=== PATIENT | male | born 1960 | race Hispanic/Latino ===

== ENCOUNTER 2022-11-28 20:15 | Inpatient (IN) | payer BC ==
--- OUTSIDE RECORDS SUMMARY | 2022-11-28 21:12 | XMS REPORT | Continuity of Care Document ---
:1960 Author Organization [facility] t Address [address] [place] [address] [address] [place] [address] Care Team Providers Name Role Phone ANIBAL BOB Primary Care Physician Unavailable Gregorio Ramos Attending Clinician Unavailable DR ANIBAL BOB Attending Clinician Unavailable [phone] Attending Clinician Unavailable Moreno Haley Attending Clinician DR ANIBAL BOB Admitting Clinician Unavailable Mroeno Haley Admitting Clinician Payers Payer Name Policy Type Policy Number Effective Date Expiration Date S our BCBS/BLUE [id number] ADVANTAGE-HMO - CLINIC BCBS/BLUE [id number] ADVANTAGE-HMO - CLINIC BCBS/BLUE [id number] ADVANTAGE-HMO - CLINIC BCBS/BLUE [id number] ADVANTAGE-HMO - CLINIC BCBS/BLUE [id number] [facility] Problems Condition Condition Condition Status Onset Resolution Last Treating Co mments Source Name Details Category Date Date Treatment Clinician Date STEMI STEMI Diagnosis Active 2018-09-18 Mem oria Active 05-08 08:30:00 l 05/08/2018 00:00: Enmanuel roberto [address] Problem 2018-05-12 Memor ia elevation elevation 23:56:47 l (STEMI) (STEMI) Den myocardial myocardial infarction infarction of of unspecifie unspecifie d site d site 05/12/[address] [facility] [address] ST Diagnosis Active 2018-09-18 Mem oria ELEVATION ELEVATION 08:30:00 l (STEMI) (STEMI) [place] MYOCARDIAL MYOCARDIAL INFARCTI INFARCTI Active [facility] ENCOUNTER ENCOUNTER Diagnosis Active 2018-09-10 Donna FOR FOR 15:25:00 l IMMUNIZATI IMMUNIZATI He ann ON ON Active [facility] Allergies, Adverse Reactions, Alerts Allergy Allergy Status Severity Reaction(s) Onset Inactive Treating Comm ents Source Name Type Date Date Clinician No Known MA Active UNKNOWN [facility] ib[facility] ibuprofe Active [facility] [place] Social History Smoking Status Start Date Stop Date Source Social History [facility] Medications Ordered Filled Start Stop Current Ordering Indication Dosage Frequency Signature Comments Components Source Medication Medication Date Date Medication? Clinician (SIG) Name Name rosuvastati Yes 10 mg = 1 M emoria n 10 mg 2-15 tab, PO, l oral tablet 21:38: Bedtime, # [place] 00 30 tab, 2 Refill(s) metoprolol Yes 50 mg = 1 Me moria 50 mg oral 2-15 tab, PO, l tablet, 21:38: Daily, # Enmanuel n extended 00 30 tab, 2 release Refill(s) lisinopril Yes 5 mg = 1 Mem oria 5 mg oral 2-15 tab, PO, l tablet 21:38: Daily, # [place] 00 30 tab, 2 Refill(s) Aspirin 81 Yes 81 mg = 1 Me moria MG Enteric 2-15 tab, PO, l Coated 21:38: Daily, # Den Tablet 00 30 tab, 2 Refill(s) ticagrelor Yes 90 mg = 1 Me moria 90 mg oral 2-15 tab, PO, l tablet 21:38: Q12H, # 60 Angelica nn 00 tab, 2 Refill(s) rosuvastati No Notes: Michael vasile n 2-15 (Same As: l 03:00: Crestor) Lisinopril No Notes: Memor ia 2-14 (Same as: l 16:00: Prinivil, Den 00 Zestril) metoprolol No Notes: Memor ia extended 2-14 (Same as: l release 16:00: Toprol XL) Herm vivian May split tab, but do not crush. Aspirin 81 No Notes: Do Me moria MG Enteric 2-14 not crush l Coated 15:00: or chew. Den Tablet 00 (Same As: Ecotrin) Lipitor No Notes: Memoria 2-14 (Same As: l 03:00: Lipitor) [place] Saline No Notes: Memoria Flush 0.9% 2-14 Same as: l 03:00: BD Posiflush Sterile Ticagrelor No Notes: Memor ia 2-14 (Same as: l 03:00: Brilinta) atorvastati No Notes: Michael vasile n 2-14 (Same as: l 03:00: Lipitor) Sodium No 250 mL, Memoria Chloride 2-13 Route: l 0.9% IV 23:19: IVPB, Start date: 05/08/18 17:19:00 [employer], Duration: 30 day, Stop date: 06/07/18 18:18:00 CDT, PRN Line Flush Magnesium No Notes: Memori a Oxide 2-13 (Same as: l 23:12: Mag-Ox Den 00 400) Magnesium oxide 292bp=317h g elemental magnesium Dose=____m g magnesium oxide (___mg elemental magnesium) Calcium No Notes: Memoria Gluconate 2-13 WASTE: F/P l 23:12: - Sink; E [place] - [facility] Magnesium No Notes: Memori a Sulfate 2-13 WASTE: F/P l 23:12: - Sink; E Den - [facility] Trash [facility] Calcium No Notes: Memoria Carbonate 2-13 (Same As: l 500 MG 23:12: Tums) Den able 00 Calcium Tablet Carbonate 500 mg = 200 mg elemental calcium Dose = mg calcium carbonate ( mg elemental calcium) sodium No Notes: Memoria phosphate 2-13 Infuse l 23:12: over 4 Den 00 hour. Do not infuse phosphorou s concurrent ly in the same line as TPN or IVF that contains calcium. For double lumen central lines, phosphorou s may be infused in a separate lumen from TPN. Saline No Notes: Memoria Flush 0.9% 2-13 Same as: l 23:12: BD Den 00 Posiflush Sterile Albuterol No Notes: Memori a 0.833 MG/ML - (Same as: l / 23:12: Duoneb) [place] Ipratropium 00 [place] 0.167 MG/ML Inhalant Solution Nystatin No Notes: Memoria 100 UNT/MG - (Same l Topical 23:12: as:Mycosta Herm vivian Powder 00 tin, Nilstat) For external use only. Ondansetron No Notes: Michael vasile -13 (Same as: l 19:09: Zofran) Den 00 MEDICATION WASTE Product Size: 4 mg Product Wasted: ___ mg Acetaminoph No Notes: Do M emoria en - not exceed l 19:09: 4 gm/day. Den 00 (Same as: Tylenol) Acetaminoph No Notes: Michael vasile en 325 MG / - (Same as: l Hydrocodone 19:09: [place] Angelica nn Bitartrate 00 325/5) Do 5 MG Oral not exceed Tablet 4gm/day of acetaminop hen. Sodium No 750 mL, Memoria Chloride 05-08 Rate: 75 l 0.9% IV 750 19:09: ml/hr, Herm vivian mL 00 Infuse over: 10 hr, Route: IV, Dosing Weight 89.8 kg, Total Volume: 750, Start date: 05/08/18 13:09:00 [employer], Duration: 10 hr, Stop date: 05/08/18 23:08:00 [employer]ER, 2.1, m2 Vital Signs Vital Name Observation Time Observation Value Comments Source Systolic (mm Hg) 2018-05-10 21:13:00 Michael rial Den Diastolic (mm Hg) 2018-05-10 21:13:00 Mem orial [place] Heart Rate 2018-05-10 21:13:00 [facility] [place] Temperature Oral (F) 2018-05-10 21:13:00 98.1 F [facility] [place] Respitory Rate 2018-05-10 21:13:00 Memori al Den Temperature Oral (F) 2018-05-10 17:19:00 97.8 F [facility] [place] Heart Rate 2018-05-10 17:19:00 [facility] [place] Respitory Rate 2018-05-10 17:19:00 Memori al Den Systolic (mm Hg) 2018-05-10 17:19:00 Michael rial Den Diastolic (mm Hg) 2018-05-10 17:19:00 Mem orial [place] Systolic (mm Hg) 2018-05-10 13:45:00 Michael rial [place] Diastolic (mm Hg) 2018-05-10 13:45:00 Mem orial Den Heart Rate 2018-05-10 13:45:00 [facility] [place] Temperature Oral (F) 2018-05-10 13:45:00 97.9 F [facility] [place] Respitory Rate 2018-05-10 13:45:00 Memori al Den Height 2018-05-08 19:46:00 167.64 cm [facility] Den Weight 2018-05-08 19:01:00 [facility] BMI Calculated 2018-05-08 19:01:00 Memori al [place] Height 2018-05-08 19:01:00 172.72 cm [facility] Den Weight 2018-05-08 19:00:00 [facility] Den Procedures This patient has no known procedures. Encounters Start End Encounter Admission Attending Care Care Encounter Source Date/Time Date/Time Type Type Clinicians Facility Department ID 2022-11-09 Outpatient EJ Ramos [facility] [id number] Common 15:43:01 Gregorio [id number] [facility] 2022-11-07 Outpatient OkosEJ hoffmann [facility] [id number] Common 09:15:01 Gregorio [id number] [facility] 2022-11-03 Outpatient EJ Ramos [facility] [id number] Common 09:30:01 Gregorio [id number] [facility] 2021-06-27 Outpatient ELCAMPO E[facility] [id number] El 16:20:44 [id number] [facility] 2021-06-24 Outpatient ELCAMPO ELCAMPO [id number] El 08:30:40 [id number] [facility] 2018-05-08 Inpatient [id number] 11:20:00 2021-06-24 2021-06-[address] [id number] 08:32:00 09:14:00 [id number] [facility] 2018-05-08 2018-05-10 Inpatient Radha [facility] [id number] [facility] 17:20:00 22:42:00 r Den 44 l [facility] 2018-05-08 2018-05-10 Outpatient Alimohammad [facility] [id number] 11:20:00 16:42:00 , Moreno 44 Results Test Description Test Time Test Comments Results Result Comments Source ELECTROLYTES 2018-05-10 10:47:00 Test Item Value Reference Range Interpretation Comme nts AGAP (test code = AGAP) 11.9 10.0-20.0 [facility]atmsnxJLRENKHWRBOY4744-19-05 10:47:00 Test Item Value Reference Range Interpretation Comments eGFR (test code = eGFR) 83 [facility] GladwinTtymhnvBUPYBBDTONRB0756-68-13 10:47:00 Test Item Value Reference Range Interpretation Comments Calcium Lvl (test code = Calcium Lvl) 9.4 8.5-10.5 [facility] GladwinAbqzlimSFVWPVSNWDHV2938-92-67 10:47:00 Test Item Value Reference Range Interpretation Comments CO2 (test code = CO2) 24 24-32 [facility] GladwinIftdgmkPMPTIVCXHBJV1544-16-78 10:47:00 Test Item Value Reference Range Interpretation Comments Potassium Lvl (test code = Potassium 3.9 3.5-5.1 Lvl) [facility] GladwinCickajfZLNVEGOKTMYW1865-48-49 10:47:00 Test Item Value Reference Range Interpretation Comments Chloride Lvl (test code = Chloride Lvl) 108 95-109 [facility] GladwinFihedhlARVRMPFJQOOG8183-32-18 10:47:00 Test Item Value Reference Range Interpretation Comments Creatinine Lvl (test code = Creatinine 1.00 0.50-1.40 Lvl) [facility] GladwinJusoynsDHZOSCHEDXKR8652-69-74 10:47:00 Test Item Value Reference Range Interpretation Comments Sodium Lvl (test code = Sodium Lvl) 140 135-145 [facility] GladwinTxrdpfuGMSIOYPBQZJU0540-18-90 10:47:00 Test Item Value Reference Range Interpretation Comments BUN (test code = BUN) 20 7-22 [facility] GladwinUwvwbqoPHHKFFKLGHRV6189-84-54 10:47:00 Test Item Value Reference Range Interpretation Comments Glucose Lvl (test code = Glucose Lvl) 98 70-99 [facility]NzmvjjaDMARQFSQBK6069-53-01 10:47:00 Test Item Value Reference Range Interpretation Comments MPV (test code = MPV) 10.4 7.4-10.4 [facility] CenterZbyyyjaZXQMMPBDCD1560-29-16 10:47:00 Test Item Value Reference Range Interpretation Comments Hct (test code = Hct) 46.6 42.0-54.0 [facility] CenterYkcxvbmJNQYPAPPGC9378-75-93 10:47:00 Test Item Value Reference Range Interpretation Comments MCV (test code = MCV) 89.7 80.0-94.0 [facility] CenterPhgchuuZJVAMBEAAJ7470-41-25 10:47:00 Test Item Value Reference Range Interpretation Comments Platelet (test code = Platelet) 149 133-450 [facility] CenterXtbzbzyCTICRHOSED4712-00-56 10:47:00 Test Item Value Reference Range Interpretation Comments RDW (test code = RDW) 13.7 11.5-14.5 [facility] CenterPbsuczxRVFWKREKVI5505-76-67 10:47:00 Test Item Value Reference Range Interpretation Comments MCHC (test code = MCHC) 33.1 32.0-36.0 [facility] CenterFckhyxpBWAENLEIQZ4708-72-41 10:47:00 Test Item Value Reference Range Interpretation Comments MCH (test code = MCH) 29.7 pg 27.0-31.0 [facility] CenterQakaxcvKZPPTEXDMX9758-39-21 10:47:00 Test Item Value Reference Range Interpretation Comments Hgb (test code = Hgb) 15.4 14.0-18.0 [facility] CenterQmmycjwWXTIZNPSKI9813-50-02 10:47:00 Test Item Value Reference Range Interpretation Comments RBC (test code = RBC) 5.19 4.70-6.10 [facility] CenterDjcanvoVDFCZJMVLG9329-68-59 10:47:00 Test Item Value Reference Range Interpretation Comments WBC (test code = WBC) 9.5 3.7-10.4 [facility] CenterInwandwQNFFOACGXG5414-63-74 10:47:00 Test Item Value Reference Range Interpretation Comments Lymphocytes (test code = Lymphocytes) 30.3 20.0-40.0 [facility] CenterHfxorsxQHWYFFAKLF0676-67-39 10:47:00 Test Item Value Reference Range Interpretation Comments Monocytes (test code = Monocytes) 10.0 2.0-12.0 [facility] CenterCooarmpCBNBCGHHEL7695-09-25 10:47:00 Test Item Value Reference Range Interpretation Comments Eosinophils (test code = 1.3 See_Comment [A utomated message] The Eosinophils) system which ge nerated this result tra nsmitted reference range : <=4.0. The reference r maxime was not used to int erpret this result as normal/abnormal . [facility] CenterDqfbddnOTLTYUJRKY7081-55-68 10:47:00 Test Item Value Reference Range Interpretation Comments Basophils (test code = 0.5 See_Comment [Aut omated message] The Basophils) system which ge nerated this result tra nsmitted reference range : <=1.0. The reference r maxime was not used to int erpret this result as normal/abnormal . [facility] CenterBaotracEFGFUDWYFE1193-37-42 10:47:00 Test Item Value Reference Range Interpretation Comments Neutrophils # (test code = Neutrophils 5.5 1.5-8.1 #) [facility] CenterAkmvwyqBBUTBDIMPB8534-47-92 10:47:00 Test Item Value Reference Range Interpretation Comments Segs (test code = Segs) 57.9 45.0-75.0 [facility] CenterCnthbxwWGKSBVJQPG1986-95-08 10:47:00 Test Item Value Reference Range Interpretation Comments Lymphocytes # (test code = Lymphocytes 2.9 1.0-5.5 #) [facility] CenterMerqlwjMEILMKPLCO6206-44-70 10:47:00 Test Item Value Reference Range Interpretation Comments Eosinophils # (test code 0.1 See_Comment [A utomated message] The = Eosinophils #) system whic h generated this result tra nsmitted reference range : <=0.5. The reference r maxime was not used to int erpret this result as normal/abnormal . [facility] CenterOjhdgklLFDWSIKZRY0222-06-61 10:47:00 Test Item Value Reference Range Interpretation Comments Monocytes # (test code 1.0 See_Comment [Aut omated message] The = Monocytes #) system which generated this result tra nsmitted reference range : <=0.8. The reference r maxime was not used to int erpret this result as normal/abnormal . [facility]2019-02-14 09:15:00 Test Item Value Reference Range Interpretation Comments Phosphorus (test code = Phosphorus) 4.6 2.5-4.5 [facility]2019-02-14 09:15:00 Test Item Value Reference Range Interpretation Comments Ca Norm WB (test code = Ca Norm WB) 1.22 1.05-1.25 [facility]2019-02-14 09:15:00 Test Item Value Reference Range Interpretation Comments Ca Ion WB (test code = Ca Ion WB) 1.24 1.05-1.25 [facility]2019-02-14 09:14:00 Test Item Value Reference Range Interpretation Comments Calcium Lvl (test code = Calcium Lvl) 9.6 8.5-10.5 [facility]2019-02-14 09:14:00 Test Item Value Reference Range Interpretation Comments BUN (test code = BUN) 18 7-22 [facility]2019-02-14 09:14:00 Test Item Value Reference Range Interpretation Comments Glucose Lvl (test code = Glucose Lvl) 114 70-99 [facility]2019-02-14 09:14:00 Test Item Value Reference Range Interpretation Comments Chloride Lvl (test code = Chloride Lvl) 109 95-109 [facility]2019-02-14 09:14:00 Test Item Value Reference Range Interpretation Comments AGAP (test code = AGAP) 17.6 10.0-20.0 [facility]2019-02-14 09:14:00 Test Item Value Reference Range Interpretation Comments CO2 (test code = CO2) 18 24-32 [facility]2019-02-14 09:14:00 Test Item Value Reference Range Interpretation Comments Sodium Lvl (test code = Sodium Lvl) 140 135-145 [facility]2019-02-14 09:14:00 Test Item Value Reference Range Interpretation Comments Creatinine Lvl (test code = Creatinine 1.00 0.50-1.40 Lvl) [facility]2019-02-14 09:14:00 Test Item Value Reference Range Interpretation Comments Potassium Lvl (test code = Potassium 4.6 3.5-5.1 Lvl) [facility]2019-02-14 09:14:00 Test Item Value Reference Range Interpretation Comments eGFR (test code = eGFR) 83 [facility]2019-02-14 09:14:00 Test Item Value Reference Range Interpretation Comments Magnesium Lvl (test code = Magnesium 2.2 1.8-2.4 Lvl) [facility] CenterFccolynFBDRYBIHWF5890-20-17 09:14:00 Test Item Value Reference Range Interpretation Comments Lymphocytes (test code = Lymphocytes) 21.3 20.0-40.0 [facility] CenterBzphxbvRIRQBOUXCB8420-13-07 09:14:00 Test Item Value Reference Range Interpretation Comments Segs (test code = Segs) 68.6 45.0-75.0 [facility] CenterVdollkqADVIBSPECL7311-63-77 09:14:00 Test Item Value Reference Range Interpretation Comments Eosinophils (test code = 1.5 See_Comment [A utomated message] The Eosinophils) system which ge nerated this result tra nsmitted reference range : <=4.0. The reference r maxime was not used to int erpret this result as normal/abnormal . [facility] CenterDrugreqXHORRJBKJV8953-09-19 09:14:00 Test Item Value Reference Range Interpretation Comments Monocytes (test code = Monocytes) 8.3 2.0-12.0 [facility] CenterQjarezjOEPJMJHESY4179-69-46 09:14:00 Test Item Value Reference Range Interpretation Comments Basophils # (test code 0.0 See_Comment [Aut omated message] The = Basophils #) system which generated this result tra nsmitted reference range : <=0.2. The reference r maxime was not used to int erpret this result as normal/abnormal . [facility] CenterRsrgljhDXNMSXJEYR5493-47-57 09:14:00 Test Item Value Reference Range Interpretation Comments Eosinophils # (test code 0.1 See_Comment [A utomated message] The = Eosinophils #) system wh h generated this result tra nsmitted reference range : <=0.5. The reference r maxime was not used to int erpret this result as normal/abnormal . [facility] CenterYvhvdwhVFJXGFZVWS7243-18-87 09:14:00 Test Item Value Reference Range Interpretation Comments Monocytes # (test code 0.8 See_Comment [Aut omated message] The = Monocytes #) system which generated this result tra nsmitted reference range : <=0.8. The reference r maxime was not used to int erpret this result as normal/abnormal . [facility] CenterMlsqjkcCAUHTESXQD0217-69-60 09:14:00 Test Item Value Reference Range Interpretation Comments Lymphocytes # (test code = Lymphocytes 2.1 1.0-5.5 #) [facility] CenterKbtkhprABHVVIFLZD5597-21-10 09:14:00 Test Item Value Reference Range Interpretation Comments Neutrophils # (test code = Neutrophils 6.7 1.5-8.1 #) [facility] CenterDcwleefFFKFCXULFL1949-47-37 09:14:00 Test Item Value Reference Range Interpretation Comments Basophils (test code = 0.3 See_Comment [Aut omated message] The Basophils) system which ge nerated this result tra nsmitted reference range : <=1.0. The reference r maxime was not used to int erpret this result as normal/abnormal . [facility] CenterVitdqzjVVTBQIGTBP9369-50-13 09:14:00 Test Item Value Reference Range Interpretation Comments RDW (test code = RDW) 13.5 11.5-14.5 [facility] CenterNrprjkgFLVXGAGWYZ1923-19-11 09:14:00 Test Item Value Reference Range Interpretation Comments MCHC (test code = MCHC) 33.6 32.0-36.0 [facility] CenterXielgqpTPSSBZSDZC2226-21-78 09:14:00 Test Item Value Reference Range Interpretation Comments MPV (test code = MPV) 10.7 7.4-10.4 [facility] CenterOyudfyvGGOVHHOPCX1678-05-56 09:14:00 Test Item Value Reference Range Interpretation Comments Platelet (test code = Platelet) 154 133-450 [facility] CenterUsitxghGNZSKPRCUU2144-83-92 09:14:00 Test Item Value Reference Range Interpretation Comments MCH (test code = MCH) 29.5 pg 27.0-31.0 [facility] CenterNjdqegnBMRULJLRZA6271-08-28 09:14:00 Test Item Value Reference Range Interpretation Comments Hct (test code = Hct) 44.7 42.0-54.0 [facility] CenterVnqoexdBVEIODGCTX8166-51-65 09:14:00 Test Item Value Reference Range Interpretation Comments MCV (test code = MCV) 87.7 80.0-94.0 [facility] CenterWgmcqzdBCERQZOZOC0451-43-59 09:14:00 Test Item Value Reference Range Interpretation Comments Hgb (test code = Hgb) 15.0 14.0-18.0 [facility] CenterSsvqxmvQFUDQPLJUO7229-64-40 09:14:00 Test Item Value Reference Range Interpretation Comments WBC (test code = WBC) 9.8 3.7-10.4 [facility]RqzwwmuTDCIBBQDTY1887-98-12 09:14:00 Test Item Value Reference Range Interpretation Comments RBC (test code = RBC) 5.09 4.70-6.10 [facility] [id number] 04:51:00 Test Item Value Reference Range Interpretation Comments CK MB (test code = CK MB) 10.8 0.5-3.6 [facility] XWGNKDC4759-21-07 04:51:00 Test Item Value Reference Range Interpretation Comments Troponin-I (test code 2.61 See_Comment [Auto mated message] The = Troponin-I) system which g enerated this result transmit reinaldo reference range : <=0.40. The reference r maxime was not used to interpr et this result as shawn l/abnormal. [facility]2019-02-13 23:42:00 Test Item Value Reference Range Interpretation Comments Glucose Lvl (test code = Glucose Lvl) 111 70-99 [facility]2019-02-13 23:42:00 Test Item Value Reference Range Interpretation Comments BUN (test code = BUN) 16 7-22 [facility]2019-02-13 23:42:00 Test Item Value Reference Range Interpretation Comments Potassium Lvl (test code See Note 1(05/08/18 3.5-5.1 = Potassium Lvl) 5:42 PM) [facility]2019-02-13 23:42:00 Test Item Value Reference Range Interpretation Comments Creatinine Lvl (test code = Creatinine 1.00 0.50-1.40 Lvl) [facility]2019-02-13 23:42:00 Test Item Value Reference Range Interpretation Comments Sodium Lvl (test code = Sodium Lvl) 129 135-145 [facility]2019-02-13 23:42:00 Test Item Value Reference Range Interpretation Comments Calcium Lvl (test code = Calcium Lvl) 9.2 8.5-10.5 [facility]2019-02-13 23:42:00 Test Item Value Reference Range Interpretation Comments CO2 (test code = CO2) 21 24-32 [facility]2019-02-13 23:42:00 Test Item Value Reference Range Interpretation Comments Chloride Lvl (test code = Chloride Lvl) 106 95-109 [place] [id number] 23:42:00 Test Item Value Reference Range Interpretation Comments eGFR (test code = eGFR) 83 [facility] AMVJGSE2035-26-25 23:38:00 Test Item Value Reference Range Interpretation Comments CK MB (test code = CK MB) 4.4 0.5-3.6 [facility] [id number] 23:38:00 Test Item Value Reference Range Interpretation Comments Troponin-I (test code 0.75 See_Comment [Auto mated message] The = Troponin-I) system which g enerated this result transmit reinaldo reference range : <=0.40. The reference r maxime was not used to interpr et this result as shawn l/abnormal. [facility] [id number] 19:40:00 Test Item Value Reference Range Interpretation Comments Total Protein (test code = Total 7.0 6.4-8.4 Protein) [facility]2019-02-13 19:40:00 Test Item Value Reference Range Interpretation Comments Albumin Lvl (test code = Albumin Lvl) 3.3 3.5-5.0 [facility] [id number] 19:40:00 Test Item Value Reference Range Interpretation Comments AST (test code = AST) 79 See_Comment [Auto mated message] The system which ge nerated this result transmit reinaldo reference range : <=37. The reference range was not used to interpr et this result as shawn l/abnormal. [facility] [id number] 19:40:00 Test Item Value Reference Range Interpretation Comments ALT (test code = ALT) 64 See_Comment [Auto mated message] The system which ge nerated this result transmit reinaldo reference range : <=65. The reference range was not used to interpr et this result as shawn l/abnormal. [facility] [id number] 19:40:00 Test Item Value Reference Range Interpretation Comments Bili Total (test code = Bili Total) 0.6 0.2-1.3 [facility] [id number] 19:40:00 Test Item Value Reference Range Interpretation Comments Alk Phos (test code = Alk Phos) 61 39-136 [facility] [id number] 19:40:00 Test Item Value Reference Range Interpretation Comments A/G Ratio (test code = A/G Ratio) 0.9 1 0.7-1.6 [facility]2019-02-13 19:40:00 Test Item Value Reference Range Interpretation Comments Globulin (test code = Globulin) 3.7 2.7-4.2 [facility]2019-02-13 19:40:00 Test Item Value Reference Range Interpretation Comments AGAP (test code = AGAP) 12.8 10.0-20.0 [facility]2019-02-13 19:40:00 Test Item Value Reference Range Interpretation Comments B/C Ratio (test code = B/C Ratio) 15 1 6-25 [id number] 19:40:00 Test Item Value Reference Range Interpretation Comments Monocytes # (test code 0.5 See_Comment [Aut omated message] The = Monocytes #) system which generated this result tra nsmitted reference range : <=0.8. The reference r maxime was not used to int erpret this result as normal/abnormal . [facility] CenterElxkxatCFYIDNYHXW5040-14-72 19:40:00 Test Item Value Reference Range Interpretation Comments Eosinophils # (test code 0.0 See_Comment [A utomated message] The = Eosinophils #) system whic h generated this result tra nsmitted reference range : <=0.5. The reference r maxime was not used to int erpret this result as normal/abnormal . [facility] [id number] 19:40:00 Test Item Value Reference Range Interpretation Comments Neutrophils # (test code = Neutrophils 5.3 1.5-8.1 #) [facility] CenterBcbtespMBUPAJEARG9327-15-05 19:40:00 Test Item Value Reference Range Interpretation Comments Basophils # (test code 0.0 See_Comment [Aut omated message] The = Basophils #) system which generated this result tra nsmitted reference range : <=0.2. The reference r maxime was not used to int erpret this result as normal/abnormal . [facility] [id number] 19:40:00 Test Item Value Reference Range Interpretation Comments Lymphocytes # (test code = Lymphocytes 1.4 1.0-5.5 #) [facility] Cent[id number] 19:40:00 Test Item Value Reference Range Interpretation Comments Basophils (test code = 0.4 See_Comment [Aut omated message] The Basophils) system which ge nerated this result tra nsmitted reference range : <=1.0. The reference r maxime was not used to int erpret this result as normal/abnormal . [facility] CenterCqqswguOATEOPUIVL6850-26-89 19:40:00 Test Item Value Reference Range Interpretation Comments Eosinophils (test code = 0.5 See_Comment [A utomated message] The Eosinophils) system which ge nerated this result tra nsmitted reference range : <=4.0. The reference r maxime was not used to int erpret this result as normal/abnormal . [facility] CenterAbwchtqLPQHYEZTIS4928-73-56 19:40:00 Test Item Value Reference Range Interpretation Comments Monocytes (test code = Monocytes) 6.6 2.0-12.0 [facility] CenterQpiiafvMDOXKHEJFI7285-32-62 19:40:00 Test Item Value Reference Range Interpretation Comments Lymphocytes (test code = Lymphocytes) 19.4 20.0-40.0 [facility] CenterPlxoanrCCKLSSVJCS4510-17-30 19:40:00 Test Item Value Reference Range Interpretation Comments Segs (test code = Segs) 73.1 45.0-75.0 [facility] CenterEcuqbbsZCKJYTXWQH9640-35-23 19:40:00 Test Item Value Reference Range Interpretation Comments Fibrinogen Lvl (test code = Fibrinogen 175 230-510 Lvl) [facility] CenterKnlgbuuSXZACUHKJC2903-19-51 19:40:00 Test Item Value Reference Range Interpretation Comments PTT (test code = PTT) no gt 22.9-35.8 [facility] [id number] 19:40:00 Test Item Value Reference Range Interpretation Comments INR (test code = INR) 1.21 1 0.85-1.17 [facility] CenterHmobalgLLSNVQEYDI8302-08-77 19:40:00 Test Item Value Reference Range Interpretation Comments PT (test code = PT) 15.1 s 12.0-14.7 [facility] Cent[id number] 19:40:00 Test Item Value Reference Range Interpretation Comments MPV (test code = MPV) 11.6 7.4-10.4 [facility] Cent[id number] 19:40:00 Test Item Value Reference Range Interpretation Comments RDW (test code = RDW) 13.7 11.5-14.5 [facility] Cent[id number] 19:40:00 Test Item Value Reference Range Interpretation Comments Platelet (test code = Platelet) 142 133-450 [facility] CenterRknzbomNWTIIVLUSF4593-86-09 19:40:00 Test Item Value Reference Range Interpretation Comments MCHC (test code = MCHC) 34.3 32.0-36.0 [facility] CenterQmwduqzLQJGLPZDOK3141-86-09 19:40:00 Test Item Value Reference Range Interpretation Comments MCH (test code = MCH) 29.6 pg 27.0-31.0 [facility] CenterLltgpqaMGYZRTECQF9583-03-36 19:40:00 Test Item Value Reference Range Interpretation Comments MCV (test code = MCV) 86.4 80.0-94.0 [facility] CenterLzmytrwFGVQTPTZLV2466-00-94 19:40:00 Test Item Value Reference Range Interpretation Comments Hct (test code = Hct) 43.4 42.0-54.0 [facility] CenterGvuoyagRPFHNZAFIM4020-82-58 19:40:00 Test Item Value Reference Range Interpretation Comments RBC (test code = RBC) 5.03 4.70-6.10 [facility] CenterNhexruvTSJQDTZMUN9680-61-12 19:40:00 Test Item Value Reference Range Interpretation Comments Hgb (test code = Hgb) 14.9 14.0-18.0 [facility] CenterLsuhfqzZFTNVLNKQR3491-07-27 19:40:00 Test Item Value Reference Range Interpretation Comments WBC (test code = WBC) 7.3 3.7-10.4 [id number] 19:40:00 Test Item Value Reference Range Interpretation Comments VLDL (test code = VLDL) 40 1 [facility] Cl[id number] 19:40:00 Test Item Value Reference Range Interpretation Comments LDL (Calculated) (test code = LDL 108 (Calculated)) [facility]neCcalpavREJXVX4923-53-60 19:40:00 Test Item Value Reference Range Interpretation Comments Chol (test code = Chol) 171 [facility] Cle[facility]neKzbmkbmLDOFIV7442-40-60 19:40:00 Test Item Value Reference Range Interpretation Comments Trig (test code = Trig) 200 [facility] CleburneSeylrzoTWCEXO6518-92-47 19:40:00 Test Item Value Reference Range Interpretation Comments HDL (test code = HDL) 23 [facility] Cle[facility]neLjcnbhyQJFQGS5447-94-82 19:40:00 Test Item Value Reference Range Interpretation Comments CHD Risk (test code = CHD Risk) 7.43 1 4.00-7.30 [facility]annPARATHYROID [id number] 19:40:00 Test Item Value Reference Range Interpretation Comments Ca Norm WB (test code = Ca Norm WB) 0.89 1.05-1.25 [facility] HospitalannPARATHYROID [id number] 19:40:00 Test Item Value Reference Range Interpretation Comments Ca Ion WB (test code = Ca Ion WB) 0.89 1.05-1.25 [facility]SPECIAL [id number] 19:40:00 Test Item Value Reference Range Interpretation Comments Hgb A1C (test code = Hgb A1C) 6.2 [facility] HospitalBACTERIAL - [id number] 19:40:00 Test Item Value Reference Range Interpretation Comments MRSA by PCR (test Negative (05/08/18 1:40 code = MRSA by PCR) PM) [facility] HospitalCARDIAC [id number] 19:40:00 Test Item Value Reference Range Interpretation Comments Troponin-I (test code 0.32 See_Comment [Auto mated message] The = Troponin-I) system which g enerated this result transmit reinaldo reference range : <=0.40. The reference r maxime was not used to interpr et this result as shawn l/abnormal. [facility] HospitalCHEM [id number] 19:40:00 Test Item Value Reference Range Interpretation Comments Magnesium Lvl (test code = Magnesium 2.0 1.8-2.4 Lvl) [facility]annCHEM [id number] 19:40:00 Test Item Value Reference Range Interpretation Comments Phosphorus (test code = Phosphorus) 2.3 2.5-4.5 [facility] Notes Date/Time Note Provider Source 2018-05-09 09:36:00-00:00 Patient Name: ALIREZA MCDONNELL [facility] : 1960; Age: 57 years y/o Male MR: [id number] CAROTID DOPPLER Clinical Indication: Status post myocardial infa rction. Comparison: None. TECHNIQUE: Machado-scale, color Doppler an d spectral Doppler of the carotid arteries was performed. Any reported ICA stenoses indirectly reference the distal internal carotid diameter as the denominator for the steno sis measurement, utilizing consensus panel crite vasile. FINDINGS: * MACHADO SCALE AND COLOR-FLOW: No significant plaq uing or stenosis. * VELOCITY MEASUREMENTS RIGHT CAROTID SYSTEM : -Right internal carotid donita ry peak systolic velocity: Within normal limits, 124 cm/sec -ICA/CCA ratio (systolic velocity ratio): Within normal limits, 0.83 LEFT CAROTID SYSTEM : -Left internal carotid arter y peak systolic velocity: Within normal limits, 78 cm/sec -ICA/CCA ratio (systolic velocity ratio): Within normal limits, 0.86 * VERTEBRAL ARTERIES: Both vertebral arteries were demonstrated. There is antegrade flow within both vertebral arteries. IMPRESSION: 1. Carotid Doppler within no rmal limits. There is no significant plaquing or stenosis. Consensus panel Doppler US criteria for diagnosi s of ICA stenosis: Stenosis (%) ICA PSV (cm/sec) ICA/CCA ratio <50 <125 <2.0 50-69 125-230 2.0-4.0 >70 but less than >230 >4.0 near occlusion Near occlusion High, low, or Variable undetectable SL: [id number]
[2022-11-28 23:05] LABS: Absolute Lymphocytes (CBC) 2.9 K/uL (0.7-4.9); Hematocrit 49.8 % (39.6-49.0); Lymphocytes % 39.3 % (15.3-44.8); MCV 90.1 fL (80-100); MPV 9.5 fL (7.6-11.3); Platelets 138 thou/uL (152-406); RBC Red Blood Cell Count 5.53 M/uL (4.33-5.43)
[2022-11-28] MEDS ORDERED: NA CHLORIDE 0.9% 1,000 ML ONE ×2 (23:07→23:18)
[2022-11-28 23:15] LABS: Albumin 4.2 g/dL (3.4-5.0); Bilirubin Total 0.8 mg/dL (0.2-1.0); Protein, Total 8.1 g/dL (6.4-8.2)
[2022-11-28] MEDS ORDERED: NACL 0.9% IRR SOLN 2,000 ML IRR ONE (23:18)
[2022-11-29] MEDS ORDERED: MORPHINE 4 MG/ML SYR ONE ×2 (00:35→01:24)
[2022-11-29 00:39] LABS: Specific Gravity 1.019 (1.005-1.030); Urine Bacteria None Seen /HPF (<20); Urine Bilirubin NEGATIVE (Negative); Urine Blood 3+ (OVER) (Negative); Urine Clarity Extremely Turbid (Clear); Urine Color Red (Yellow); Urine Glucose NEGATIVE (Negative); Urine Protein 2+ (Negative); Urine RBC >50 /HPF (None Seen); Urine Urobilinogen Normal (Normal)
--- NOTE | 2022-11-29 02:48 | EDPHYS ---
Physician Documentation [facility] Name: Jasiel Leal Age: 62 yrs Sex: Male : 1960 Arrival Date: 11/28/2022 Time: 20:15 Bed 7 Private MD: Gregorio Ramos ED Physician Ricky Leon HPI: 11/28 20:21 This 62 yrs old Male presents to ER via Unassigned with complaints of Urinary sp4 Problem. 11/29 02:43 62-year-old male presents with acute gross hematuria starting at 3:30 today.. Patient sp4 states he had [place]UR[place] [address] Solis. Patient today reports gross hematuria and discomfort. Also bladder distention. . Historical: - Allergies: 11/28 21:40 NSAIDS; rv - PMHx: 21:41 ENLARGED PROSTATE; rv - PSHx: 21:41 CARDIAC STENT; PROSTATE PROCEDURE; rv - Immunization history:: Adult Immunizations up to date. - Social history:: Smoking status: Patient denies any tobacco usage or history of. - Family history:: not pertinent. ROS: 11/29 02:43 Constitutional: Negative for fever, chills, and weight loss, : Positive for gross sp4 hematuria and urinary bladder discomfort. All other systems are negative. Exam: 02:43 Constitutional: This is a well developed, well nourished patient who is awake, alert, sp4 and in no acute distress. Head/Face: Normocephalic, atraumatic. Eyes: Pupils equal round and reactive to light, extra-ocular motions intact. Lids and lashes normal. Conjunctiva and sclera are not injected. Cornea within normal limits. Periorbital areas with no swelling, redness, or edema. ENT: Nares patent. No nasal discharge, no septal abnormalities noted. Tympanic membranes are normal and external auditory canals are clear. Oropharynx with no redness, swelling, or masses, exudates, or evidence of obstruction, uvula midline. Mucous membranes moist. Neck: Trachea midline, no thyromegaly or masses palpated, and no cervical lymphadenopathy. Supple, full range of motion without nuchal rigidity, or vertebral point tenderness. Chest/axilla: Normal chest wall appearance and motion. Nontender with no deformity. No lesions are appreciated. Cardiovascular: Regular rate and rhythm with a normal S1 and S2. No gallops, murmurs, or rubs. Normal PMI, no JVD. No pulse deficits. Respiratory: Lungs have equal breath sounds bilaterally, clear to auscultation and percussion. No rales, rhonchi or wheezes noted. No increased work of breathing, no retractions or nasal flaring. Abdomen/GI: Soft, with normal bowel sounds. No distension or tympany. No guarding or rebound. Positive urinary bladder distention and tenderness Back: No spinal tenderness. No costovertebral tenderness. Male : Normal genitalia with no discharge or lesions. Circumcised male, positive acute hematuria with blood clots. Positive urinary bladder distention Skin: Warm, dry with normal turgor. Normal color with no rashes, no lesions, and no evidence of cellulitis. MS/ Extremity: Pulses equal, no cyanosis. Neurovascular intact. Full, normal range of motion. Neuro: Awake and alert, GCS 15, oriented to person, place, time, and situation. Cranial nerves II-XII grossly intact. Motor strength 5/5 in all extremities. Sensory grossly intact. Psych: Awake, alert, with orientation to person, place and time. Behavior, mood, and affect are within normal limits Vital Signs: 11/28 21:38 BP 144 / 95; Pulse 72; Resp 17; Temp 98; Pulse Ox 98% ; Weight 90.26 kg; Height 5 ft. 6 rv in. ; Pain 0/10; 11/29 01:23 BP 115 / 93; Pulse 75; Resp 17; Pulse Ox 97% on R/A; rv 03:27 BP 106 / 85; Pulse 62; Resp 16; Pulse Ox 96% ; rv 04:28 BP 127 / 79; Pulse 66; Resp 16; Temp 98; Pulse Ox 99% ; rv 11/28 21:38 Body Mass Index 32.12 (90.26 kg, 167.64 cm) rv 11/28 21:38 Pain Scale: Adult rv Tarrs Coma Score: 01:23 Eye Response: spontaneous(4). Motor Response: obeys commands(6). Verbal Response: rv oriented(5). Total: 15. 03:27 Eye Response: spontaneous(4). Motor Response: obeys commands(6). Verbal Response: rv oriented(5). Total: 15. MDM: 11/28 20:24 Patient medically screened. sp4 11/29 02:29 ED course: CT - TECHNIQUE: Axial computed tomography images of the abdomen and pelvis sp4 with intravenous contrast. Sagittal and coronal reformatted images were created and reviewed. This CT exam was performed using one or more of the following dose reduction techniques: automated exposure control, adjustment of the mA and/or kV according to patient size, and/or use of iterative reconstruction technique. COMPARISON: No relevant prior studies available. FINDINGS: LUNG BASES: Unremarkable. No mass. No consolidation. ABDOMEN: LIVER: The liver is enlarged and mildly fatty. A few low attenuating foci are present within liver which are too small to accurately characterize. GALLBLADDER AND BILE DUCTS: No calcified stones. No ductal dilation. PANCREAS: No ductal dilation. No mass. SPLEEN: Unremarkable. ADRENALS: Unremarkable. No mass. KIDNEYS AND URETERS: Mild bilateral hydroureteronephrosis is present. No obstructing calculus is seen. Exophytic right renal cyst is present. No follow-up imaging is recommended. The kidneys enhance symmetrically. STOMACH AND BOWEL: Stomach is decompressed. The small bowel is normal in caliber. Stool is present throughout colon. Scattered colonic diverticula are noted without surrounding inflammation. There is no mucosal thickening or evidence of obstruction. PELVIS: APPENDIX: The appendix is normal in caliber without surrounding inflammation. BLADDER: The bladder is significantly distended. High density material is noted layering within the right aspect of the bladder measuring approximately 3.8 x 1.6 cm. REPRODUCTIVE: The prostate is enlarged and heterogeneous. ABDOMEN and PELVIS: INTRAPERITONEAL SPACE: Unremarkable. No free air. No significant fluid collection. BONES/JOINTS: Multilevel degenerative change of the spine is present. SOFT TISSUES: A fat-containing umbilical hernia is present. VASCULATURE: Unremarkable. No abdominal aortic aneurysm. LYMPH NODES: Unremarkable. No enlarged lymph nodes. IMPRESSION: 1. Significantly distended urinary bladder with layering high density along the right base of the bladder. Findings may be secondary to blood products versus a mass. Further evaluation is warranted to exclude underlying malignancy. 2. Enlarged heterogeneous prostate with extension into the bladder. Recommend correlation with PSA and physical exam. 3. Mild bilateral hydroureteronephrosis, findings secondary to the distended bladder.. 02:43 Differential Diagnosis altered mental status, sepsis, flu. Data reviewed: vital signs, sp4 nurses notes, lab test result(s), radiologic studies, CT scan. Consideration of Admission/Observation Patient was admitted/placed on observation. Escalation of care including admission/observation considered. Management of patient was discussed with the following: Force Dispatcher: Discussed with Accepting Urologist at [facility] . ED course: Patient presents with acute gross hematuria. CT report revealed distended urinary bladder with possibly blood clots in the bladder versus a mass. Enlarged heterogenous prostate. Mild bilateral hydronephrosis secondary to distended bladder. We have attempted for catheter placements to decompress urinary bladder and to irrigate the bladder. Were not able to insert the bladder catheter. Will contact urologist at [facility] for emergent transfer for catheter placement, bladder decompression and bladder irrigation. . 03:55 ED course: Patient was presented with options. At this time we are unable to thread sp4 urinary catheter to decompress the bladder or to irrigate the bladder. Patient was actually accepted at [facility] by [facility] urologist as ER to ER transfer. Patient at this time declines to be transferred he reports he would like to stay in the hospital to see Dr. Nestor Foreman in the morning. Dr. Foreman did agree to see patient when he was contacted just after midnight. Patient was advised to get transferred out based on emergent urologic guidelines however patient declines transfer and he is aware of risks. At this time will admit to hospitalist with urology consult for patient assessment at in the morning time. Patient able to evacuate some of the urine, his urine remains grossly bloody. 11/28 22:42 Order name: Urinalysis W/Microscopic; Complete Time: 04:00 sp4 11/28 22:42 Order name: CBC with Diff; Complete Time: 23:40 sp4 11/28 22:42 Order name: CMP; Complete Time: 23:40 sp4 11/28 22:42 Order name: Lipase; Complete Time: 23:40 sp4 11/28 23:54 Order name: CREATININE WHOLE BLOOD; Complete Time: 04:00 EDMS 11/29 00:43 Order name: Urine Culture EDMS 11/29 04:07 Order name: Urinalysis w/ reflexes EDMS 11/29 04:07 Order name: CBC with Automated Diff EDMS 11/29 04:07 Order name: CBC with Automated Diff EDMS 11/29 04:07 Order name: CBC with Automated Diff EDMS 11/29 04:07 Order name: Comprehensive Metabolic Panel EDIL 11/29 04:07 Order name: Comprehensive Metabolic Panel EDMS 11/29 04:07 Order name: Comprehensive Metabolic Panel EDIL 11/29 04:07 Order name: Magnesium EDMS 11/29 04:07 Order name: Magnesium EDMS 11/29 04:07 Order name: Magnesium EDMS 11/28 22:49 Order name: CT Abd/Pelvis - IV Contrast Only sp4 11/29 04:04 Order name: CONS Physician Consult EDIL 11/29 04:07 Order name: NPO EDIL 11/28 22:42 Order name: IV Saline Lock; Complete Time: 22:44 sp4 11/28 22:42 Order name: Labs collected and sent; Complete Time: 22:44 sp4 Administered Medications: 11/28 22:59 Drug: NS 0.9% IV 1000 ml Route: IV; Rate: 125 ml/hr; Site: right antecubital; rv 11/29 04:42 Follow up: IV Status: Infusion continued upon admission rv 01:14 Drug: morphine IVP or IV 8 mg Route: IVP; Infused Over: 4 mins; Site: right antecubital;rv 04:43 Follow up: Response: No adverse reaction rv 04:12 Drug: Rocephin - Rocephin (cefTRIAXone) IVPB 1 grams Route: IVPB; Infused Over: 30 rv mins; Site: right antecubital; 04:42 Follow up: IV Status: Completed infusion; IV Intake: 100ml rv 04:43 Not Given (NOT APPROPRIATE AT THIS TIME): metoCLOPramide IVP 10 mg IVP once; over 1 to rv 2 minutes Disposition Summary: 11/29/22 04:00 Hospitalization Ordered Hospitalization Status: Inpatient Admission sp4 Provider: Joselito Thomas spHerb Location: Telemetry/[facility] (Inpatient) sp4 Condition: Serious(11/29/22 04:00) sp4 Problem: new(11/29/22 04:00) sp4 Symptoms: are unchanged(11/29/22 04:00) sp4 Bed/Room Type: Standard sp4 Room Assignment: 228(11/29/22 04:27) cg Diagnosis - Gross hematuria sp4 - Urinary bladder clots, bladder outlet obstruction, prostatomegaly, gross hematuria, sp4 possible bladder mass Forms: - Medication Reconciliation Form sp4 - SBAR form sp4 - Leadership Thank You Letter sp4 Signatures: Dispatcher [employer] Yvette Raymond, RN RN Payam Reyes RN RN rv Ricky Leon MD MD sp4 Corrections: (The following items were deleted from the chart) 11/28 21:42 21:40 PMHx: PROSTATE; rv rv 11/29 03:58 02:48 [facility] 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 sp4 sp4 03:58 02:48 Higher level of care sp4 sp4 03:58 02:48 Stable sp4 sp4 03:58 02:48 new sp4 sp4 03:58 02:48 have improved sp4 sp4 03:58 02:48 Acute cystitis with hematuria sp4 sp4 03:58 02:48 Acute bladder outlet obstruction, urinary bladder distention, gross hematuria, sp4 urinary bladder blood clots, possible urinary bladder mass, sp4 04:27 04:00 sp4
--- NOTE | 2022-11-29 02:48 | ER ---
Nurse's Notes [facility] Name: Jasiel Leal Age: 62 yrs Sex: Male : 1960 Arrival Date: 11/28/2022 Time: 20:15 Bed 7 Private MD: Javier Ramos Diagnosis: Gross hematuria;Urinary bladder clots, bladder outlet obstruction, prostatomegaly, gross hematuria, possible bladder mass Presentation: 11/28 21:38 Chief complaint: Patient states: BLD IN URINE STARTED JUNE, CT SCAN IS NORMAL, WENT TO UROLOGIST 2 WKS AGO, SCOPE WAS DONE-NORMAL RESULT, TODAY AT 1530 STARTED BLEEDING AGAIN WITH BLD CLOTS. Coronavirus screen: At this time, the client does not indicate any symptoms associated with coronavirus-19. Ebola Screen: No symptoms or risks identified at this time. Initial Sepsis Screen: Does the patient meet any 2 criteria? No. Patient's initial sepsis screen is negative. Does the patient have a suspected source of infection? No. Patient's initial sepsis screen is negative. Risk Assessment: Do you want to hurt yourself or someone else? Patient reports no desire to harm self or others. Onset of symptoms was November 28, 2022. 21:38 Method Of Arrival: Ambulatory rv 21:38 Acuity: MICHAEL 3 rv Triage Assessment: 21:41 General: Appears comfortable, Behavior is calm, cooperative. Pain: Denies pain. Neuro: rv Level of Consciousness is awake, alert, obeys commands, Oriented to person, place, time, situation. Cardiovascular: Capillary refill < 3 seconds Patient's skin is warm and dry. Respiratory: Airway is patent Respiratory effort is even, unlabored, Breath sounds are clear bilaterally. GI: No signs and/or symptoms were reported involving the gastrointestinal system. : Urine is javier blood, Reports BLEEDING AND BLOOD CLOTS IN URINE. Historical: - Allergies: 21:40 NSAIDS; rv - PMHx: 21:41 ENLARGED PROSTATE; rv - PSHx: 21:41 CARDIAC STENT; PROSTATE PROCEDURE; rv - Immunization history:: Adult Immunizations up to date. - Social history:: Smoking status: Patient denies any tobacco usage or history of. - Family history:: not pertinent. Screenin:43 [facility] ED Fall Risk Assessment (Adult) History of falling in the last 3 months, rv including since admission No falls in past 3 months (0 pts) Score/Fall Risk Level 0 - 2 = Low Risk Oriented to surroundings, Maintained a safe environment, Educated pt \T\ family on fall prevention, incl call for assistance when getting out of bed, Assessed \T\ reinforced patient's understanding of fall precautions, Provided non-skid footwear, Hourly rounding (assess needs \T\ fall precautionary measures) done, Used ambulatory aids as needed (educated on \T\ assisted with), Used gait belt as appropriate. Abuse screen: Denies threats or abuse. Denies injuries from another. Nutritional screening: No deficits noted. Tuberculosis screening: No symptoms or risk factors identified. Assessment: 21:43 Reassessment: SEE TRIAGE NOTES. rv 11/29 01:23 Reassessment: UNSUCCESSFUL 3 WAY CULLEN CATHETER INSERTION WITH ARABIC 20 AND 18. rv REFERRED TO DR LEON. Reassessment: PT IS COMFORTABLE AT THIS MOMENT, PAIN FREE. VS STABLE. SPOUSE AT THE BEDSIDE. UPDATED ON THE PLAN OF CARE. 03:00 Reassessment: DR LEON TRIED TO INSERT 3 WAY CULLEN, UNSUCCESSFUL AT THIS TIME. WILL rv REFER TO UROLOGY. FOR TRANSFER. PT IS AWARE OF THE PLAN OF CARE. Vital Signs: 11/28 21:38 BP 144 / 95; Pulse 72; Resp 17; Temp 98; Pulse Ox 98% ; Weight 90.26 kg; Height 5 ft. 6 rv in. ; Pain 0/10; 11/29 01:23 BP 115 / 93; Pulse 75; Resp 17; Pulse Ox 97% on R/A; rv 03:27 BP 106 / 85; Pulse 62; Resp 16; Pulse Ox 96% ; rv 04:28 BP 127 / 79; Pulse 66; Resp 16; Temp 98; Pulse Ox 99% ; rv 11/28 21:38 Body Mass Index 32.12 (90.26 kg, 167.64 cm) rv 11/28 21:38 Pain Scale: Adult rv Frederick Coma Score: 01:23 Eye Response: spontaneous(4). Motor Response: obeys commands(6). Verbal Response: rv oriented(5). Total: 15. 03:27 Eye Response: spontaneous(4). Motor Response: obeys commands(6). Verbal Response: rv oriented(5). Total: 15. ED Course: 11/28 20:17 Patient arrived in ED. mr 20:18 Javier Ramos MD is Private Physician. mr 20:21 Ricky Leon MD is Attending Physician. sp4 21:25 Payam Reyes, DARLENE is Primary Nurse. rv 21:40 Triage completed. rv 21:41 Arm band placed on right wrist. rv 21:43 Patient has correct armband on for positive identification. Placed in gown. Bed in low rv position. Call light in reach. Side rails up X 1. Client placed on continuous cardiac and pulse oximetry monitoring. NIBP monitoring applied. air sampling and monitoring on. 21:43 No provider procedures requiring assistance completed. rv 21:44 Provided Education on: BLEEDING. rv 22:40 Inserted saline lock: 22 gauge in right antecubital area, using aseptic technique. pf1 Blood collected. 22:53 CBC with Diff Sent. pf1 22:53 CMP Sent. pf1 22:53 Lipase Sent. pf1 23:35 CT Abd/Pelvis - IV Contrast Only In Process Unspecified. EDMS 11/29 00:16 Urinalysis W/Microscopic Sent. pf1 03:59 Joselito Thomas is Hospitalizing Provider. sp4 04:43 Patient admitted, IV remains in place. rv Administered Medications: 11/28 22:59 Drug: NS 0.9% IV 1000 ml Route: IV; Rate: 125 ml/hr; Site: right antecubital; rv 11/29 04:42 Follow up: IV Status: Infusion continued upon admission rv 01:14 Drug: morphine IVP or IV 8 mg Route: IVP; Infused Over: 4 mins; Site: right antecubital;rv 04:43 Follow up: Response: No adverse reaction rv 04:12 Drug: Rocephin - Rocephin (cefTRIAXone) IVPB 1 grams Route: IVPB; Infused Over: 30 rv mins; Site: right antecubital; 04:42 Follow up: IV Status: Completed infusion; IV Intake: 100ml rv 04:43 Not Given (NOT APPROPRIATE AT THIS TIME): metoCLOPramide IVP 10 mg IVP once; over 1 to rv 2 minutes Medication: 11/28 21:43 VIS not applicable for this client. rv Intake: 11/29 04:42 IV: 100ml; Total: 100ml. rv Outcome: 02:48 ER care complete, transfer ordered by . sp4 04:00 Decision to Hospitalize by Provider. sp4 04:43 Admitted to Med/surg accompanied by nurse, via wheelchair, room 228, with chart, Report rv called to YUMIKO WHITMORE 04:43 Condition: stable 04:43 Instructed on the need for admit. 04:45 Patient left the ED. rv Signatures: Dispatcher [employer] TAVARES GioYuli Ronaldo RN RN rv Carol Duff RN RN pf1 Ricky Leon MD MD sp4 Corrections: (The following items were deleted from the chart) 11/28 21:42 21:40 PMHx: PROSTATE; rv rv
--- NOTE | 2022-11-29 04:04 | P.HP ---
Certification for Inpatient Patient admitted to: Observation With expected LOS: <2 Midnights Patient will require the following post-hospital care: None Practitioner: I am a practitioner with admitting privileges, knowledge of patient current condition, hospital course, and medical plan of care. Services: Services provided to patient in accordance with Admission requirements found in Title 42 Section 412.3 of the Code of Federal Regulations Patient History Date of Service: 11/29/22 Reason for admission: Gross hematuria History of Present Illness: 62-year-old male with a past medical history of enlarged prostate, hypertension, hyperlipidemia, cardiac stent presents to the emergency room with gross hematuria starting at 3:30 PM today. he reports painless hematuria with clots, with gross hematuria. He reports previous [place]UR[place] [address] Solis. He reports associated bladder distention that is worse today. He denies fever, nausea, vomiting, diarrhea, shortness of breath or chest pain. He reports seen urologist 2 weeks ago with cystoscope, ED course Rocephin given, morphine, attempted bladder irrigation was unsuccessful, CT of the abdomen pelvis bladder distention with high density along the bladder base could be secondary to mass versus scar, enlarged prostate recommend PSA plus physical exam, mild bilateral hydronephrosis no obstructing calculus is seen, umbilical hernia with fat- containing presents Dr. Foreman consulted, plan to admit for mild bilateral hydronephrosis, gross hematuria, bladder outlet obstruction,prostatomegaly possible bladder mass, laboratory evaluation WBCs within normal limits H&H within normal limits, hemoglobin 16.7 hematocrit is 49.8, no left shift, BUN/creatinine is normal BUN is 14 creatinine is 1.29, estimated GFR 62 blood glucose 125, calcium elevated at 10.5, UA 3+ hematuria, blood glucose 3,ED course: CT - TECHNIQUE: Axial computed tomography images of the abdomen and pelvis with intravenous contrast Allergies ibuprofen Allergy (Verified 01/26/22 06:47) vasodilate, increase bp [id number] Reductase Inhibitor Allergy (Verified 01/26/22 06:47) muscles clench Home Medications: Aspirin [Adult Low Dose Aspirin EC] 1 tab PO DAILY 01/24/22 Bergamot Extract [Bergacor] 1 tab PO BID 01/24/22 Ezetimibe [Zetia*] 1 tab PO DAILY 01/24/22 Lisinopril [Zestril] 1 tab PO DAILY 01/24/22 Metoprolol Succinate [Toprol Xl*] 1 tab PO DAILY 01/24/22 Niacin (Inositol Niacinate) [Niacin 500 mg Capsule] 1 tab PO BID 01/24/22 - Past Medical/Surgical History Diabetic: No -: Enlarged prostate -: Hypertension -: Hyperlipidemia -: TURP -: Sinus surgery - Social History Smoking Status: Never smoker Smoking therapy provided: No Patient receptive to therapy: No Alcohol use: No CD- Drugs: No Review of Systems 10-point ROS is otherwise unremarkable Physical Examination - Physical Exam General: Alert, In no apparent distress, Oriented x3 HEENT: Atraumatic, Normocephalic, PERRLA Neck: Supple, 2+ carotid pulse no bruit, JVD not distended Respiratory: Clear to auscultation bilaterally, Normal air movement Cardiovascular: No edema, Normal pulses, Regular rate/rhythm, Normal S1 S2 Capillary refill: <2 Seconds Gastrointestinal: Normal bowel sounds, No tenderness Musculoskeletal: No clubbing, No swelling Integumentary: No rashes, No breakdown Neurological: Normal speech, Normal strength at 5/5 x4 extr, Normal tone, Normal affect Urinary: Other (Gross hematuria with clots) - Studies Laboratory Data (last 24 hrs) 11/28/22 11/28/22 22:40 22:40 WBC 7.40 Hgb 16.7 Hct 49.8 H Plt Count 138 L Sodium 137 Potassium 4.0 BUN 14 Creatinine 1.29 Glucose 125 H Total Bilirubin 0.8 AST 16 ALT 60 Alkaline Phosphatase 59 Lipase 45 Assessment and Plan - Plan Assessment plan mild bilateral hydronephrosis Gross hematuria Enlarged prostate Dr. Foreman consulted, IV fluids given in the ER, Rocephin, as needed analgesics WBCs within normal limits H&H within normal limits, hemoglobin 16.7 hematocrit is 49.8, no left shift, BUN/creatinine is normal BUN is 14 creatinine is 1.29, estimated GFR 62 blood glucose 125, calcium elevated at 10.5, UA 3+ hematuria, CT of the abdomen pelvis bladder distention with high density along the bladder base could be secondary to mass versus scar, enlarged prostate recommend PSA plus physical exam, mild bilateral hydronephrosis no obstructing calculus is seen Umbilical hernia Essential hypertension Hyperlipidemia CAD with history of PCI Resume appropriate home meds DVT prophylaxis SCDs N.p.o. after midnight Full code Discharge Plan: Home Plan to discharge in: 24 Hours - Advance Directives Does patient have a Living Will: No Does patient have a Durable POA for Healthcare: No - Code Status/Comfort Care Code Status: Full Code Physician Review: Patient Assessed, Agree with Above Assessment and Plan Critical Care: No Time Spent Managing Pts Care (In Minutes): 50
[2022-11-29] MEDS ORDERED: CEFTRIAXONE 1000 MG/VIAL ONE (04:15)
[2022-11-29] MEDS ORDERED: MORPHINE 4 MG/ML SYR IV PRN (04:15)
[2022-11-29] MEDS ORDERED: NA CHLORIDE 0.9% 100 ML ONE (04:15)
[2022-11-29 05:16] VITALS: O2SAT 99
[2022-11-29 05:25] LABS: Hematocrit 48.6 % (39.6-49.0); Lymphocytes % 21.3 % (15.3-44.8); MCV 90.9 fL (80-100); MPV 9.2 fL (7.6-11.3); Platelets 131 thou/uL (152-406); RBC Red Blood Cell Count 5.35 M/uL (4.33-5.43)
[2022-11-29 05:33] VITALS: BMI 32.4
[2022-11-29 05:47] LABS: Albumin 3.9 g/dL (3.4-5.0); Bilirubin Total 0.6 mg/dL (0.2-1.0); Magnesium 2.1 mg/dL (1.6-2.4); Potassium 4.3 mEq/L (3.5-5.1); Protein, Total 7.5 g/dL (6.4-8.2)
[2022-11-29] MEDS ORDERED: HYDROMORPHONE HCL 2 MG/ML inj IV ONE (12:09)
--- NOTE | 2022-11-29 17:14 | P.PN ---
Date of Service: 11/29/22 Patient seen and examined. Acute urinary retention Hematuria BPH. Case discussed with Dr. Foreman. Dr. Foreman saw patient and placed a coud catheter. Urine is grossly bloody, no clots. Maintain Saunders catheter Empiric IV Rocephin Noted patient has been taking saw palmetto. Monitor H&H and transfuse as needed. Serial bladder scan.
[2022-11-29] MEDS: EZETIMIBE 10 MG TAB PO SCH (18:00)
[2022-11-29] MEDS: CEFTRIAXONE 1,000 MG in NA CHLORIDE 0.9% 50 ML IVPB SCH (18:04)
--- NOTE | 2022-11-29 19:13 | P.CNS ---
Date of Consult: 11/29/22 62-year-old gentleman known to me as an outpatient and last seen on 11/09/2022 with hypertension , hypercholesterolemia history of AMI, post PCI with stent placed on aspirin s/p TURP in 2019 with recurrent intermittent gross hematuria and left renal atrophy with incomplete emptying of his bladder. I had requested repeat of the CT scan this time with IV contrast and a delayed phase image to rule out AV malformation, upper tract urothelial lesion, and other processes causing the left renal atrophy. Despite the anatomy and objective findings above, the patient denied any bothersome LUTS - AUA symptom score 2/35, SH IM 09/1711/07/2022 PSA 1.23 11/09/2022 cystoscopy completed as below revealing evidence of prior TURP with anterior lobar resection exclusively with residual median lobar intravesical projection obscuring the ureteral orifices and interdigitating lateral lobar hypertrophy with neovascularization, likely the source of the gross hematuria. I thus counseled him as of his last visit as follows: Given the anatomy of his obstruction, he had 2 options for management of his BPH and LUTS: 1. Add finasteride, 65% chance of success with 6 months of therapy required at minimum and 1 to 2 years of therapy to achieve the benefit. I counseled him on the 15% risk of erectile dysfunction and loss of sex drive that could be permanent. He expressed already having ED and might not be opposed to the idea of finasteride. I further expressed that given the anatomy of his obstruction, the finasteride was likely to be successful less than 50% of the time in him. 2. Surgical therapy. He would unlikely be a great candidate for the UroLift and instead would likely be better served with a bipolar TURP or a h olmium laser enucleation of the prostate. He was concerned about the idea of having a catheter in place given his work requirements; so I suggested we could try for only 1 or 2 days with the Saunders catheter since he would not be able to work for 24 hours after anesthesia anyway. -We discussed that the blood in the urine was a relative indication for surgery unless it became frequently recurrent or persistent. In the absence of any UTI or acute urinary retention, those were the other absolute indications. -Virtual visit follow-up to discuss the results of the CT to rule out upper tract source of the gross hematuria, and we will consider at that time if he wishes to proceed with further management of his obstruction due to BPH and the resultant gross hematuria. -He also had some concerns about erectile dysfunction, which I explained we would address once we decide how we can manage his current gross hematuria and obstruction due to BPH. In the interim, he presented to the emergency department last night with gross hematuria that started at 3:30 PM yesterday. He had some clots and associated bladder distention that had progressively worsened. He denied any fever, chills, nausea, vomiting, diarrhea. He was seen in the emergency department where Rocephin was given, and they attempted to place the catheter unsuccessfully on several attempts. 11/28/2022 CT abdomen and pelvis without contrast (my review of the imaging): Mild left hydronephrosis with tortuous ureter extending to the level of the bladder without obstructing calculus noted. Bladder distended to the umbilicus with some higher density material in the base of the bladder near the trigone where intravesical projection of the prostate was noted. No urolithiasis. WBC 7.4, hemoglobin 16.7, platelets 138, creatinine 1.29, LFTs normal UA 1+ leukocyte Estrace, > 50 RBCs per hpf, 20-50 WBCs per hpf Given the distention of his bladder and discomfort the patient was experiencing, I recommended urethral Saunders catheter placement. Urethral Saunders catheter placement procedure note: The patient was supine in the hospital bed, and his genitalia was prepped with Betadine and draped in standard fashion. Lidocaine Uro-Jet was applied intraurethrally for local anesthesia. I then passed an 18 [place] coud tip catheter via his urethra and into his bladder with ease. He had prompt return of tea colored with a slight pink tinge urine. Over 1400 cc obtained postvoid residual. He tolerated the procedure well and without complications. Assessment, counseling and recommendations: 62-year-old gentleman known to me as an outpatient and last seen on 11/09/2022 with hypertension , hypercholesterolemia history of AMI, post PCI with stent placed on aspirin s/p TURP in 2019 with recurrent intermittent gross hematuria and left renal atrophy with incomplete emptying of his bladder p 11/09/2022 cystoscopy revealing evidence of prior TURP with anterior lobar resection exclusively with residual median lobar intravesical projection obscuring the ureteral orifices and interdigitating lateral lobar hypertrophy with neovascularization, likely the source of the gross hematuri, now progressed to acute, large volume > 1400 cc, urinary retention. -Since the cost of the IV contrast CT scan is prohibitive for him, we will do the following: -Send urine from the catheter for cytology/FISH to assess for malignant cells -Follow-up for transrectal ultrasound assessment of his prostate volume in preparation for surgical therapy -Bipolar TURP and bilateral retrograde pyelographies will likely be required to complete the evaluation of his recurrent gross hematuria
[2022-11-30 04:18] LABS: Absolute Lymphocytes (CBC) 2.3 K/uL (0.7-4.9); Hematocrit 45.4 % (39.6-49.0); Lymphocytes % 22.2 % (15.3-44.8); MCV 90.8 fL (80-100); MPV 10.7 fL (7.6-11.3); Platelets 144 thou/uL (152-406)
[2022-11-30 04:33] LABS: Albumin 3.7 g/dL (3.4-5.0); Bilirubin Total 0.6 mg/dL (0.2-1.0); Magnesium 2.1 mg/dL (1.6-2.4); Potassium 4.1 mEq/L (3.5-5.1); Protein, Total 7.1 g/dL (6.4-8.2)
[2022-11-30] MEDS: EZETIMIBE 10 MG TAB PO SCH (08:51)
[2022-11-30] MEDS: CEFTRIAXONE 1,000 MG in NA CHLORIDE 0.9% 50 ML IVPB SCH (08:52)
[2022-11-30] MEDS ORDERED: TAMSULOSIN 0.4 MG SR CAP PO SCH (10:40)
[2022-11-30 16:32] VITALS: BP 108/61; TEMP 98.4
--- NOTE | 2022-11-30 16:55 | P.DS ---
Admission Date: 11/29/22 Discharge Date: 11/30/22 Disposition: ROUTINE DISCHARGE Discharge Condition: FAIR Reason for Admission: Gross hematuria - Problems (1) Hematuria Current Visit: Yes Status: Acute (2) Hydronephrosis Current Visit: Yes Status: Acute (3) BPH (benign prostatic hyperplasia) Current Visit: Yes Status: Acute Brief History of Present Illness: 62-year-old male with a past medical history of enlarged prostate, hypertension, hyperlipidemia, cardiac stent presents to the emergency room with gross hematuria. He reported painless hematuria with clots. He reports previous [place] [address] Solis. He reports associated bladder distention. He reports seing urologist Dr. Foreman 2 weeks ago who performed cystoscope, ED course Rocephin given, morphine, attempted bladder irrigation was unsuccessful, CT of the abdomen pelvis bladder distention with high density along the bladder base could be secondary to mass versus scar, enlarged prostate recommend PSA plus physical exam, mild bilateral hydronephrosis no obstructing calculus is seen, umbilical hernia with fat-containing present. Patient admitted for further management. Hospital Course: Patient was admitted to the medical floor, seen by urology Dr. Foreman who inserted Saunders catheter. Bloody urine initially drained and then the urine started to clear up. Currently his urine is bloodstained, but no gross bleeding. Patient's symptoms resolved. He was treated with IV Rocephin empirically. Dr. Foreman recommend urine sample for cytology and FISH analysis which are sent. Patient started on Flomax and discharged to follow-up with Dr. Foreman within a couple of weeks. Vital Signs/Physical Exam: Temp Pulse Resp BP Pulse Ox 98.4 F 78 16 108/61 93 11/30/22 16:00 11/30/22 16:00 11/30/22 16:00 11/30/22 16:00 11/30/22 16:00 General: Alert, In no apparent distress, Oriented x3 HEENT: Mucous membr. moist/pink Neck: JVD not distended Respiratory: Clear to auscultation bilaterally, Normal air movement Cardiovascular: No edema, Regular rate/rhythm, Normal S1 S2 Gastrointestinal: Normal bowel sounds, Soft and benign, Non-distended, No tenderness Musculoskeletal: No swelling Integumentary: No rashes, No cyanosis Neurological: Normal strength at 5/5 x4 extr Urinary: Saunders catheter Laboratory Data at Discharge: WBC 10.20 thou/uL (4.3-10.9) 11/30/22 02:38 Hgb 15.6 g/dL (13.6-17.9) 11/30/22 02:38 Hct 45.4 % (39.6-49.0) 11/30/22 02:38 Plt Count 144 thou/uL (152-406) L 11/30/22 02:38 Sodium 136 mEq/L (136-145) 11/30/22 02:38 Potassium 4.1 mEq/L (3.5-5.1) 11/30/22 02:38 BUN 24 mg/dL (7-18) H 11/30/22 02:38 Creatinine 1.38 mg/dL (0.70-1.30) H 11/30/22 02:38 Glucose 111 mg/dL (74-106) H 11/30/22 02:38 Magnesium 2.1 mg/dL (1.6-2.4) 11/30/22 02:38 Total Bilirubin 0.6 mg/dL (0.2-1.0) 11/30/22 02:38 AST 14 U/L (15-37) L 11/30/22 02:38 ALT 46 U/L (16-61) 11/30/22 02:38 Alkaline Phosphatase 55 U/L (45-117) 11/30/22 02:38 Lipase 45 U/L (13-75) 11/28/22 22:40 Home Medications: Ezetimibe [Zetia*] 1 tab PO DAILY 01/24/22 Niacin (Inositol Niacinate) [Niacin 500 mg Capsule] 1 tab PO BID 01/24/22 Cefdinir [Omnicef] 300 mg PO BID #14 cap 11/30/22 Tamsulosin [Flomax*] 0.4 mg PO DAILY #30 cap 11/30/22 New Medications: Tamsulosin [Flomax*] 0.4 mg PO DAILY #30 cap Cefdinir [Omnicef] 300 mg PO BID #14 cap Diet: AHA Activity: Ad janie Followup: Gregorio Ramos MD [Primary Care Provider] - Nestor Foreman [ACTIVE - CAN ADMIT] - (Within 2 weeks.) Time spent managing pt's care (in minutes): 39
[2022-11-30] MEDS ORDERED: FINASTERIDE 5 MG TAB PO SCH (21:00)
--- NOTE | 2022-12-02 17:00 | RAD REPORT ---
EXAM DESCRIPTION: CT - Abdomen Pelvis W Contrast - 11/29/2022 6:58 am CLINICAL HISTORY: The patient is 62 years old and is Male; distended urinary bladder TECHNIQUE: Axial computed tomography images of the abdomen and pelvis with intravenous contrast. S agittal and coronal reformatted images were created and reviewed. This CT exam was performed using one or more of the following dose reduction techniques: automated exposure control, adjustment of t he mA and/or kV according to patient size, and/or use of iterative reconstruction technique. COMPARISON: No relevant prior studies available. FINDINGS: LUNG BASES: Unremarkable. No mass. No consolidation. ABDOMEN: LIVER: The liver is enlarged and mildly fatty. A few low attenuating foci are present within live r which are too small to accurately characterize. GALLBLADDER AND BILE DUCTS: No calcified stones. No ductal dilation. PANCREAS: No ductal dilation. No mass. SPLEEN: Unremarkable. ADRENALS: Unremarkable. No mass. KIDNEYS AND URETERS: Mild bilateral hydroureteronephrosis is present. No obstructing calculus is seen. Exophytic right renal cyst is present. No follow-up imaging is recommended. The kidneys enhance symmetrically. STOMACH AND BOWEL: Stomach is decompressed. The small bowel is normal in caliber. Stool is presen t throughout colon. Scattered colonic diverticula are noted without surrounding inflammation. There i s no mucosal thickening or evidence of obstruction. PELVIS: APPENDIX: The appendix is normal in caliber without surrounding inflammation. BLADDER: The bladder is significantly distended. High density material is noted layering within the right aspect of the bladder measuring approximately 3.8 x 1.6 cm. REPRODUCTIVE: The prostate is enlarged and heterogeneous. ABDOMEN and PELVIS: INTRAPERITONEAL SPACE: Unremarkable. No free air. No significant fluid collection. BONES/JOINTS: Multilevel degenerative change of the spine is present. SOFT TISSUES: A fat-containing umbilical hernia is present. VASCULATURE: Unremarkable. No abdominal aortic aneurysm. LYMPH NODES: Unremarkable. No enlarged lymph nodes. IMPRESSION: 1. Significantly distended urinary bladder with layering high density along the right base of the bladder. Findings may be secondary to blood products versus a mass. Further evaluation is warranted to exclude underlying malignancy. 2. Enlarged heterogeneous prostate with extension into the bladder. Recommend correlation with PSA and physical exam. 3. Mild bilateral hydroureteronephrosis, findings secondary to the distended bladder. Electronically signed by: Marion Szymanski MD 11/29/2022 12:36 AM CDT Due to temporary technical issues with the PACS/Fluency reporting system, reports are being signed by the in house radiologists without review as a courtesy to insure prompt reporting. The interpreting radiologist is fully responsible for the content of the report.
== END 2022-11-30 20:55 | disposition home or self-care (01) | DRG 694 ==
LOC: ER 20:15 → 2ND 11-29 04:00 → OBSVTOIN 11-29 13:22
PROVIDERS: ADMIT Internal Medicine; ATTEND Internal Medicine
PROC: 0T9B70Z Drainage of Bladder with Drainage Device, Via Natural or Artificial Opening (ICD-10-PCS; principal; 2022-11-29)
DX: N13.30 Unspecified hydronephrosis (principal); I10 Essential (primary) hypertension; E78.5 Hyperlipidemia, unspecified; N40.1 Benign prostatic hyperplasia with lower urinary tract symptoms; E78.00 Pure hypercholesterolemia, unspecified; N32.89 Other specified disorders of bladder; I25.10 Atherosclerotic heart disease of native coronary artery without angina pectoris; R31.0 Gross hematuria; R33.8 Other retention of urine; I25.2 Old myocardial infarction; Z95.5 Presence of coronary angioplasty implant and graft; Z88.8 Allergy status to other drugs, medicaments and biological substances; Z79.82 Long term (current) use of aspirin; Z79.899 Other long term (current) drug therapy
CPT/HCPCS: 36415; 74177; 80053; 81001; 82565; 83690; 83735; 85025; 87086; 87088; 88108; 88121; 96361; 96365; 96375; 99285; G0378; J0696; J1170; J7030; Q9967